=== PATIENT | female | born 1970 | race Caucasian/White ===

== ENCOUNTER 2020-03-12 15:47 | Outpatient (REF) | payer OTHER, SELFPAY ==
--- NOTE | 2020-03-12 15:56 | MR_ITS ---
EXAMINATION: MR BRAIN WITHOUT CONTRAST CLINICAL INFORMATION: Concussion with loss of consciousness of unspecified generation, initial encounter. COMPARISON: None available. TECHNIQUE: Multiplanar, multisequence imaging of the brain was performed without intravenous contrast. FINDINGS: There is no acute infarction, mass, hemorrhage, or extra-axial collection. The ventricles, sulci, and basilar cisterns are normal in size and configuration. A few minimal nonspecific foci of T2 hyperintensity are seen in the cerebral white matter. No encephalomalacia, gliosis, or susceptibility signal is seen to suggest the sequela of significant intracranial trauma. The flow voids of the major intracranial arteries appear intact. The bones and extracranial soft tissues are unremarkable. IMPRESSION: No acute intracranial abnormality. No evidence of significant intracranial trauma. No mass.
== END 2020-03-12 15:48 | disposition home or self-care (01) ==
LOC: HO.MRI 15:47
PROVIDERS: PCP Internal Medicine; Visit Provider Physician Assistant
DX: S06.0X9A Concussion with loss of consciousness of unspecified duration, initial encounter (principal)
CPT/HCPCS: 70551

== ENCOUNTER 2020-04-09 11:13 | Outpatient (REF) | payer OTHER, SELFPAY ==
--- NOTE | 2020-04-09 11:38 | XR_ITS ---
EXAMINATION: XR LUMBOSACRAL SPINE CLINICAL INFORMATION: Lower back pain COMPARISON: None TECHNIQUE: Three views of the lumbosacral spine. FINDINGS: No fracture or subluxation. Vertebral body height and alignment is maintained. Disc spaces are maintained. The sacroiliac joints are symmetric. The sacrum is intact. The visualized bowel gas pattern is unremarkable. Pelvic phleboliths. XR/XR lumbar spine 2-3V IMPRESSION: Normal appearance of the lumbar spine.
--- NOTE | 2020-04-09 11:38 | XR_ITS ---
EXAMINATION: XR HIP, RIGHT CLINICAL INFORMATION: Pain in right hip COMPARISON: None TECHNIQUE: Two views of the right hip. FINDINGS: No fracture or dislocation. The femoral head articulates appropriately with its acetabulum. The joint space is maintained. The right hemipelvis is intact. Phleboliths are seen in the pelvis. XR/XR hip RT min 2V IMPRESSION: Normal right hip.
[2020-04-09 12:59] LABS: MANUAL DIFF FLAG NO
[2020-04-09 13:10] LABS: Basophils Percent Auto 0.1 % (0-2); Eosinophils Percent Auto 0.4 % (0-4); Hematocrit 39.7 % (37-47); Hemoglobin 12.7 g/dl (12.0-16.0); Imm Gran Abs Auto 0.03 X10*3/uL (0.00-0.03); Imm Gran Pct Auto 0.4 % (0.0-0.4); Lymphocytes Absolute Auto 1.4 X10*3/uL (1.2-4.9); Lymphocytes Percent Auto 19.2 % (20-40); Mean Corpuscular Hemoglobin 29.1 pg (27.0-33.0); Mean Corpuscular Volume 91.1 fL (80-98); Mean Platelet Volume 10.7 fL (9.4-12.3); Monocytes Absolute Auto 0.5 X10*3/uL (0.1-1.2); Monocytes Percent Auto 6.6 % (2-11); Neutrophils Absolute Auto 5.1 X10*3/uL (2.0-8.3); Neutrophils Percent Auto 73.3 % (45-73); Platelet Count 314 X10*3/uL (160-400); Red Blood Count 4.36 X10*6/uL (4.20-5.50); Red Cell Distribution Width 14.6 % (11.0-16.0)
[2020-04-09 13:38] LABS: Alanine Aminotransferase 12 U/L (0-31); Albumin Level 4.1 g/dL (3.5-5.0); Alkaline Phosphatase 46 U/L (39-117); Anion Gap 14 (12-20); Aspartate Amino Transferase 18 U/L (5-31); Bilirubin Total 0.4 mg/dL (0.0-1.0); Blood Urea Nitrogen 14 mg/dL (9-16); Calcium 8.4 mg/dL (8.4-10.2); Carbon Dioxide 23 mmol/L (22-29); Chloride 108 mmol/L (96-108); Cholesterol 209 mg/dL; Estimated Glomerular Filt Rate > 60; Glucose Fasting 82 mg/dL (60-99); HDL Cholesterol 52 mg/dL; LDL Cholesterol Calculated 146 mg/dl; Potassium 4.5 mmol/l (3.3-5.1); Sodium 140 mmol/L (135-145); Total Protein 6.9 g/dL (6.5-8.0); Triglycerides 58 mg/dL
[2020-04-09 14:02] LABS: TSH reflex Free T4 1.94 mIU/mL (0.32-4.0)
[2020-04-09 14:07] LABS: Glucose Urine UA NEG (NEG); Leukocyte Esterase Urine NEG (NEG); Nitrite Urine NEG (NEG); PH 7.5 (5.0-8.0); Urine Blood NEG (NEG); Urine Ketones NEG (NEG); Urine Protein NEG (NEG-TRACE)
[2020-04-09 14:08] LABS: Appearance Urine HAZY; Color Urine YELLOW
== END 2020-04-09 11:14 | disposition home or self-care (01) ==
LOC: HO.LAB 11:13
PROVIDERS: PCP Internal Medicine; Visit Provider Internal Medicine
DX: Z00.00 Encounter for general adult medical examination without abnormal findings (principal); M54.5 Low back pain; M25.551 Pain in right hip
CPT/HCPCS: 36415; 72100; 73502; 80053; 80061; 81003; 84443; 85025